=== PATIENT | male | born 1990 | race Two or more races ===

== ENCOUNTER 2022-10-30 22:04 | Emergency (ER) | payer OTHER ==
[~2022-10-30] VITALS: Ht 167.6 cm; Wt 72.6 kg
== END 2022-10-30 23:54 | disposition home or self-care (01) ==
LOC: ER 22:04
DX: J36 Peritonsillar abscess (principal); K08.89 Other specified disorders of teeth and supporting structures; Z88.1 Allergy status to other antibiotic agents

== ENCOUNTER → 2022-10-30 | Emergency (ER) | payer OTHER ==
[~2022-10-30] VITALS: Ht 170.2 cm; Wt 77.6 kg
== END | disposition left against medical advice (07) ==
LOC: ER 15:59
DX: B33.8 Other specified viral diseases (principal); Z88.1 Allergy status to other antibiotic agents